=== PATIENT | male | born 1970 | race Caucasian/White ===

== ENCOUNTER 2017-01-11 20:11 | Emergency (ER) | payer SELFPAY ==
[~2017-01-11 20:11] MED LIST: ADVIL COLD & S1 EAC1 PO; ADVIL COLD & S1 EAC2 PO; ADVIL COLD & S1 EACH PO; BACTRIM 400-801 EACH PO; BACTRIM DS TAB1 EAC2 PO; CARAFATE1 G PO; CIPRO500 M2 PO; CIPROFLOXACIN500 M3 PO; CLARITIN5 MG PO; COLACE100 MG PO; CYCLOBENZAPRINE5 M1 PO; DOXYCYCLINE HY100 M3 PO; HYDROCORTISONE PR; MOTRIN600 MG PO; MUCINEX FAST-M1 EACH PO; MULTIVITAMIN1 TAB PO; NAPROSYN500 M1 PO; NORCO 5-325 TA1 EACH PO; NORCO 5/325 TAB1 TAB PO; NORCO 5/3251 TA1 PO; NORCO 5/3251 TAB PO; NUPERCAINAL30 GM RC; OTC ANTIHISTAMINE; PHENERGAN25 M1 PO; PRILOSEC OTC20 MG PO; SENOKOT-S TABLE1 TAB PO; SUDAFED240 MG PO; SUDAFED30 M1 PO; TYLENOL EXTRA500 M1 PO; TYLENOL500 MG PO; ZOFRAN ODT4 MG PO; ZOFRAN4 M1 PO
[2017-01-11] MEDS ORDERED: BACTRIM DS TAB1 EAC2 PO (20:32)
[2017-01-11 21:37] LABS: URINE APPEARANCE CLEAR; URINE BILIRUBIN NEGATIVE (NEG); URINE BLOOD SMALL (NEG); URINE COLOR ORANGE; URINE GLUCOSE (UA) NEGATIVE (NEG); URINE KETONE SMALL (NEG); URINE LEUKOCYTE ESTERASE POSITIVE (NEG); URINE NITRITE NEGATIVE (NEG); URINE PROTEIN NEGATIVE (NEG); URINE SPECIFIC GRAVITY 1.015 (1.003-1.030)
[2017-01-11 21:46] LABS: URINE EPITHELIAL CELLS 0-1 /[HPF] (0-10); URINE RBC 0-2 /[HPF] (0-5); URINE WBC 0-1 /[HPF] (0-5)
[2017-01-11 22:19] LABS: BASO % 0.5 % (0-2); EOS % 2.5 % (0-7); EOSINOPHIL ABSOLUTE COUNT 0.2 tho/cmm (0.0-0.7); HCT-HEMATOCRIT 46.2 % (36.0-53.5); HGB-HEMOGLOBIN 15.7 gm/dl (13.5-17.0); IMMATURE GRANULOCYTES ABSOLUTE 0.01 tho/cmm (0-0.03); IMMATURE GRANULOCYTES PERCENT 0.1 % (0-0.3); LYMPH % 47.7 % (20-45); LYMPH ABSOLUTE COUNT 4.2 tho/cmm (0.8-4.5); MCH (MEAN CORPUSCULAR HGB) 30.5 pg (28.0-32.0); MCV (MEAN CELL VOLUME) 89.9 fl (82.0-96.0); MEAN PLATELET VOLUME 9.4 cmc (9.4-12.4); MONOCYTE ABSOLUTE COUNT 0.5 tho/cmm (0.0-1.2); NEUTROPHIL ABSOLUTE COUNT 3.8 tho/cmm (1.6-8.0); NEUTROPHIL-AUTOMATED 3.8 tho/cmm (1.6-8.0); NEUTROPHILS % 43.2 % (40-80); PLATELET COUNT 279 tho/cmm (150-450); RED BLOOD COUNT 5.14 mil/cmm (4.40-5.70); WHITE BLOOD COUNT 8.8 tho/cmm (4.0-10.0)
[2017-01-11 22:46] LABS: ALB/GLOB RATIO 1.2 (0.8-2.0); ALBUMIN 4.7 g/dl (3.5-5.0); ALKALINE PHOSPHATASE 79 U/L (33-138); ALT/SGPT 31 U/L (12-78); ANION GAP 13 mmol/L (0-20); AST/SGOT 17 U/L (10-40); BILIRUBIN,TOTAL 0.3 mg/dl (0.0-1.5); BLOOD UREA NITROGEN 17 mg/dl (6-24); CALCIUM 8.9 mg/dl (8.5-10.5); CARBON DIOXIDE-VENOUS 26 mmol/L (22-32); CHLORIDE 102 mmol/l (96-110); CREATININE 1.12 mg/dl (0.60-1.30); GLUCOSE 91 mg/dL (70-110); POTASSIUM 3.7 mmol/L (3.7-5.1); SODIUM 137 mmol/L (135-145); eGFR VALUE FOR BLACK >90 mL/Min
[2017-01-11] MEDS ORDERED: COLACE100 M1 PO (23:25)
[2017-01-11] MEDS ORDERED: NORCO 5/3251 TAB PO (23:25)
[2017-01-11] MEDS ORDERED: MIRALAX17 G2 PO (23:25)
== END 2017-01-12 01:10 ==
LOC: EDMED 20:11
PROVIDERS: Emergency Medicine
DX: K59.00 Constipation, unspecified (principal); R10.2 Pelvic and perineal pain; Z98.890 Other specified postprocedural states
CPT/HCPCS: J1170; J2405; J7030; Q9967

== ENCOUNTER 2017-02-26 03:06 | Emergency (ER) | payer SELFPAY ==
[~2017-02-26 03:06] MED LIST changes: +COLACE100 M1 PO; +MIRALAX17 G2 PO
[2017-02-26] MEDS ORDERED: NO HOME MEDICATION (03:39)
[2017-02-26 03:45] LABS: BASO % 0.4 % (0-2); EOS % 1.7 % (0-7); EOSINOPHIL ABSOLUTE COUNT 0.1 tho/cmm (0.0-0.7); HCT-HEMATOCRIT 43.6 % (36.0-53.5); HGB-HEMOGLOBIN 15.2 gm/dl (13.5-17.0); IMMATURE GRANULOCYTES ABSOLUTE 0.03 tho/cmm (0-0.03); IMMATURE GRANULOCYTES PERCENT 0.4 % (0-0.3); LYMPH % 42.8 % (20-45); LYMPH ABSOLUTE COUNT 3.5 tho/cmm (0.8-4.5); MCH (MEAN CORPUSCULAR HGB) 30.3 pg (28.0-32.0); MCHC MEAN CORPUSCULAR HGB CONC 34.9 % (32.0-36.0); MCV (MEAN CELL VOLUME) 86.9 fl (82.0-96.0); MEAN PLATELET VOLUME 9.3 cmc (9.4-12.4); MONO % 7.5 % (0-12); MONOCYTE ABSOLUTE COUNT 0.6 tho/cmm (0.0-1.2); NEUTROPHIL ABSOLUTE COUNT 3.9 tho/cmm (1.6-8.0); NEUTROPHIL-AUTOMATED 3.9 tho/cmm (1.6-8.0); NEUTROPHILS % 47.2 % (40-80); PLATELET COUNT 246 tho/cmm (150-450); RED BLOOD COUNT 5.02 mil/cmm (4.40-5.70); RED CELL DISTRIBUTION WIDTH 12.3 % (12.4-16.4); WHITE BLOOD COUNT 8.2 tho/cmm (4.0-10.0)
[2017-02-26 04:09] LABS: ALB/GLOB RATIO 1.1 (0.8-2.0); ALBUMIN 4.1 g/dl (3.5-5.0); ALKALINE PHOSPHATASE 80 U/L (33-138); ALT/SGPT 30 U/L (12-78); ANION GAP 17 mmol/L (0-20); AST/SGOT 19 U/L (10-40); BILIRUBIN,TOTAL 0.6 mg/dl (0.0-1.5); BLOOD UREA NITROGEN 10 mg/dl (6-24); CALCIUM 8.9 mg/dl (8.5-10.5); CARBON DIOXIDE-VENOUS 19 mmol/L (22-32); CHLORIDE 106 mmol/l (96-110); CREATININE 0.81 mg/dl (0.60-1.30); GLUCOSE 87 mg/dL (70-110); LIPASE 185 U/L (73-393); POTASSIUM 3.6 mmol/L (3.7-5.1); SODIUM 138 mmol/L (135-145); eGFR VALUE FOR BLACK >90 mL/Min
[2017-02-26 04:25] LABS: URINE BILIRUBIN NEGATIVE (NEG); URINE BLOOD NEGATIVE (NEG); URINE GLUCOSE (UA) NEGATIVE (NEG); URINE KETONE LARGE (NEG); URINE LEUKOCYTE ESTERASE NEGATIVE (NEG); URINE NITRITE NEGATIVE (NEG); URINE PROTEIN NEGATIVE (NEG)
[2017-02-26 04:26] LABS: URINE APPEARANCE CLEAR; URINE COLOR YELLOW
[2017-02-26 04:32] LABS: URINE EPITHELIAL CELLS 0-5 /[HPF] (0-10); URINE RBC 0 /[HPF] (0-5); URINE WBC 0-1 /[HPF] (0-5)
[2017-02-26] MEDS ORDERED: MIRALAX17 G2 PO (05:26)
== END 2017-02-26 05:45 ==
LOC: EDMED 03:06
PROVIDERS: Emergency Medicine
DX: T21.12XA Burn of first degree of abdominal wall, initial encounter (principal); K59.00 Constipation, unspecified; Z88.0 Allergy status to penicillin; X19.XXXA Contact with other heat and hot substances, initial encounter
CPT/HCPCS: J1885; J2270; J7030

== ENCOUNTER 2017-03-04 14:26 | Emergency (ER) | payer SELFPAY ==
[~2017-03-04 14:26] MED LIST changes: +NO HOME MEDICATION
[2017-03-04] MEDS ORDERED: MIRALAX17 G2 PO (14:47)
[2017-03-04 15:37] LABS: BASO % 0.3 % (0-2); EOS % 0.5 % (0-7); HCT-HEMATOCRIT 45.4 % (36.0-53.5); HGB-HEMOGLOBIN 15.4 gm/dl (13.5-17.0); IMMATURE GRANULOCYTES ABSOLUTE 0.01 tho/cmm (0-0.03); IMMATURE GRANULOCYTES PERCENT 0.2 % (0-0.3); LYMPH % 32.6 % (20-45); MCH (MEAN CORPUSCULAR HGB) 30.1 pg (28.0-32.0); MCHC MEAN CORPUSCULAR HGB CONC 33.9 % (32.0-36.0); MCV (MEAN CELL VOLUME) 88.7 fl (82.0-96.0); MEAN PLATELET VOLUME 9.4 cmc (9.4-12.4); MONO % 6.4 % (0-12); MONOCYTE ABSOLUTE COUNT 0.4 tho/cmm (0.0-1.2); NEUTROPHIL ABSOLUTE COUNT 3.7 tho/cmm (1.6-8.0); NEUTROPHIL-AUTOMATED 3.7 tho/cmm (1.6-8.0); PLATELET COUNT 226 tho/cmm (150-450); RED BLOOD COUNT 5.12 mil/cmm (4.40-5.70); RED CELL DISTRIBUTION WIDTH 12.3 % (12.4-16.4); WHITE BLOOD COUNT 6.1 tho/cmm (4.0-10.0)
[2017-03-04 15:40] LABS: ALB/GLOB RATIO 1.2 (0.8-2.0); ALBUMIN 4.4 g/dl (3.5-5.0); ALKALINE PHOSPHATASE 92 U/L (33-138); ALT/SGPT 29 U/L (12-78); BILIRUBIN,TOTAL 0.6 mg/dl (0.0-1.5); BLOOD UREA NITROGEN 7 mg/dl (6-24); CALCIUM 9.3 mg/dl (8.5-10.5); CARBON DIOXIDE-VENOUS 22 mmol/L (22-32); CHLORIDE 108 mmol/l (96-110); CREATININE 0.99 mg/dl (0.60-1.30); GLUCOSE 94 mg/dL (70-110); LIPASE 152 U/L (73-393); SODIUM 141 mmol/L (135-145); eGFR VALUE FOR BLACK >90 mL/Min
[2017-03-04 15:41] LABS: ANION GAP 15 mmol/L (0-20); AST/SGOT 18 U/L (10-40); POTASSIUM 4.3 mmol/L (3.7-5.1)
[2017-03-04] MEDS ORDERED: COMPAZINE10 MG PO (16:48)
[2017-03-04] MEDS ORDERED: NORCO 5-325 TA1 EACH PO (16:48)
== END 2017-03-04 16:59 ==
LOC: EDMED 14:26
PROVIDERS: Emergency Medicine
DX: R10.11 Right upper quadrant pain (principal); R11.2 Nausea with vomiting, unspecified
CPT/HCPCS: J2405